=== PATIENT | female | born 1970 | race African-American/Black ===

== ENCOUNTER 2022-05-23 11:15 | Emergency (ER) | payer BC ==
[2022-05-23] MEDS ORDERED: Acetaminophen 500 MG TAB ONE (12:38)
== END 2022-05-23 12:38 | disposition home or self-care (01) ==
LOC: CSHERS 11:15
DX: U07.1 COVID-19 (principal); Z76.0 Encounter for issue of repeat prescription; I10 Essential (primary) hypertension; F17.210 Nicotine dependence, cigarettes, uncomplicated
CPT/HCPCS: 93005; 99284; U0003; U0005

== ENCOUNTER 2023-02-09 12:36 | Outpatient (CLI) | payer BC | END 2023-02-09 12:37 | disposition home or self-care (01) | LOC: CSHRAD 12:36 | PROVIDERS: ATTEND Orthopaedic Surgery | DX: M54.50 Low back pain, unspecified (principal); M47.816 Spondylosis without myelopathy or radiculopathy, lumbar region | CPT/HCPCS: 72100 ==